=== PATIENT | male | born 1950 | race Caucasian/White ===

== ENCOUNTER 2021-07-14 10:45 | Emergency (ER) | payer MEDICARE, OTHER ==
[~2021-07-14] VITALS: Ht 177.8 cm; Wt 104.3 kg
[2021-07-14] MEDS ORDERED: NAPR-1196 PO (11:26)
[2021-07-14] MEDS: KETOROLAC 30MG VIAL (30MG/ML) IM ONE (11:36)
[2021-07-14 12:04] VITALS: BP 114/65
== END 2021-07-14 12:12 | disposition home or self-care (01) ==
LOC: EDH 10:45
DX: S42.211A Unspecified displaced fracture of surgical neck of right humerus, initial encounter for closed fracture (principal); I10 Essential (primary) hypertension; Z98.890 Other specified postprocedural states; Z88.8 Allergy status to other drugs, medicaments and biological substances; W19.XXXA Unspecified fall, initial encounter; Y93.89 Activity, other specified; Y92.89 Other specified places as the place of occurrence of the external cause; Y99.8 Other external cause status
CPT/HCPCS: 73030; 96372; 99283; J1885